=== PATIENT | female | born 1960 ===

== ENCOUNTER → 2019-11-13 15:44 | Outpatient (CLI) | payer MEDICARE, SELFPAY ==
--- NOTE | 2019-11-13 | DI.US.S_ITS ---
PROCEDURE: US PELVIC COMPLETE INDICATIONS: PELVIC PAIN, ROUTINE SCREENING MAMMOGRAM TECHNIQUE: Real-time scanning was performed of the pelvic organs, with image documentation. Additional endovaginal scanning was necessary due to incomplete visualization of the adnexal and endometrial structures by transabdominal scanning. COMPARISON: [facility], US, PELVIC COMPLETE, 05/16/2016, 14:01. FINDINGS: Transabdominal scanning: Limited scanning through the kidneys shows no hydronephrosis. No pathologic free abdominal or pelvic fluid. Endovaginal scanning: Uterus: Uterus is normal in size at 6.9 x 2.9 x 3.6 cm. The endometrium measures 4.0 mm in combined thickness. Subserosal fibroid unchanged measuring 1.8 x 1.4 x 1.8 cm. Previously visualized 2 additional intramural fibroids not identified. Ovaries: Normal ovary measuring 2.7 x 1.4 x 1.6 cm on the right and 2.2 x 1.1 x 1.5 cm in length. IMPRESSION: 1. Normal endometrial complex. 2. Stable appearance of 18 mm subserosal fibroid. Dictated by: Josias Martell [facility] Interpreted: Talon Damian MD on 11/14/2019 at 10:02 Approved by: Talon Damian M.D. on 11/14/2019 at 12:55
== END ==
PROVIDERS: PCP Family Medicine; Visit Provider Obstetrics & Gynecology
DX: R10.2 Pelvic and perineal pain (principal); D25.2 Subserosal leiomyoma of uterus
CPT/HCPCS: 76830; 76856

== ENCOUNTER 2021-02-21 17:34 | Emergency (ER) | payer MEDICARE, SELFPAY ==
[2021-02-21] VITALS (9 sets, daily range): BP systolic 112–136; BP diastolic 57–93; PULSE 59–108; RESP 14–16; TEMP 36.8; O2SAT 97–100; BMI 19.2
[2021-02-21 17:59] LABS: Bacteria Urine None Seen; RBC Urine None Seen (0-5/HPF)
[2021-02-21 18:00] LABS: Appearance Urine UA CLEAR; Bilirubin Urine UA NEGATIVE (NEGATIVE); Color Urine UA YELLOW; Glucose Urine UA NEGATIVE (Negative); Ketones Urine UA NEGATIVE (NEGATIVE); Leukocyte Esterase Urine UA NEGATIVE (NEGATIVE); Nitrite Urine UA NEGATIVE (Negative); Occult Blood Urine UA NEGATIVE (Negative); Protein Urine UA NEGATIVE (Negative); Urobilinogen Urine UA 0.2 E.U./dL (0.2)
[2021-02-21 18:02] LABS: pH Urine UA 6.5 (4.5-8.0)
[2021-02-21 18:09] LABS: Culture Indicated Urine Cult Not Indicated; Squamous Epithelial Cell Urine 0-1 /HPF (0-5/HPF); WBC Urine 0-1/HPF (0-5/HPF)
--- NOTE | 2021-02-21 19:48 | ED.FEMALEGU ---
HPI - Female Genitourinary General Chief complaint: Urogenital-Female Stated complaint: UTI, Poss in Kidney. Sent By Time Seen by Provider: 02/21/21 17:50 Source: patient Mode of arrival: Ambulatory Limitations: no limitations History of Present Illness HPI Narrative: 60F nonsmoker with dystonia and migraines presents with urinary frequency, urgency, burning and radiation to right flank. She's had no fever or chills. She denies N/V/D. She denies vaginal bleeding or discharge. She initally developed symptoms last week and was seen at a clinic in the [facility]. She had positive urine and was given Rocephin IM and an Rx for Bactrim. Once the culture came back, noting Pseudomonas she was changed to Levaquin for 5 days, which ended on Sunday. She presents today with persistent symptoms. Onset (ago): day(s) Female Urogenital Radiation: R Flank Severity: mild Quality: Aching Duration: constant Exacerbating factors: movement Patient : No Related Data Home Medications Medication Instructions Recorded Confirmed amoxicillin-pot clavulanate BID #0 04/20/17 [Augmentin] topiramate 25 mg PO BID #0 04/20/17 valacyclovir 1,000 mg PO QDAY #0 04/20/17 Previous Rx's Medication Instructions Recorded ketorolac 10 mg PO Q6H PRN #14 tab 02/21/21 levofloxacin 500 mg PO DAILY 9 Days #9 tab 02/21/21 ondansetron 4 mg PO TID-QID PRN #10 tab 02/21/21 Allergies Allergy/AdvReac Type Severity Reaction Status Date / Time haloperidol [HALOPERIDOL] Allergy Unknown POSSIBLE Unverified 03/06/18 12:27 CAUSE OF DYSTONIA metoclopramide Allergy Unknown POSSIBLE Unverified 03/06/18 12:27 [METOCLOPRAMIDE] CAUSE OF DYSTONIA Opioids - Morphine Analogues AdvReac Mild Nausea Unverified 02/21/21 17:52 [OPIOIDS - MORPHINE ANALOGUES] Review of Systems Constitutional Constitutional: Denies chills, Denies fatigue, Denies fever(s), Denies frequent falls, Denies lethargy and Denies weakness Eyes Eyes: Denies change in vision, Denies eye discharge, Denies irritation and Denies loss of vision ENT Ears, Nose, Mouth, and Throat: Denies change in voice, Denies dizziness, Denies neck pain, Denies sore throat and Denies throat swelling Cardiovascular Cardiovascular: Denies chest pain, Denies irregular heart rhythm, Denies lightheadedness, Denies palpitations, Denies dyspnea, Denies dyspnea on exertion and Denies orthopnea Respiratory Respiratory: Denies cough, Denies dyspnea, Denies dyspnea on exertion and Denies wheezing Gastrointestinal Gastrointestinal: Denies abdominal pain, Denies change in bowel habits, Denies diarrhea, Denies nausea and Denies vomiting Musculoskeletal Musculoskeletal: Denies neck pain and Denies numbness Integumentary/Breasts Skin/Breast: Denies pruritus, Denies erythema, Denies rash and Denies wounds Neurologic Neurologic: Denies behavioral changes, Denies confusion, Denies dizziness, Denies frequent falls, Denies loss of vision, Denies numbness and Denies weakness Psychiatric Psychiatric: Denies anxiety, Denies behavioral changes, Denies confusion, Denies depression, Denies homicidal ideation and Denies suicidal ideation Endocrine Endocrine: Denies fatigue, Denies flushing and Denies palpitations Hematologic/Lymphatic Hematologic/Lymphatic: Denies easy bruising Allergic/Immunologic Allergic/Immunologic: Denies urticaria, Denies throat swelling and Denies wheezing Patient History Substance Use Type: does not use Exam Narrative Exam Narrative: GENERAL: [60] year old patient appears stated age. Well-nourished, well-developed patient, in mild distress. HEAD: Atraumatic. Normocephalic. EYES: Pupils equal round and reactive. Extraocular motions intact. No scleral icterus. No injection or drainage. ENT: Nose without bleeding, purulent drainage. Throat without erythema, tonsillar hypertrophy or exudate. Airway patent. NECK: Trachea midline. Non tender CARDIOVASCULAR: Regular rate and rhythm without murmurs, gallops, or rubs. RESPIRATORY: Clear to auscultation. Breath sounds equal bilaterally. No wheezes, rales, or rhonchi. GASTROINTESTINAL: Abdomen soft, mild suprapubic tenderness, nondistended. Bowel sounds present in all 4 quadrants EXTREMITIES: No edema or joint tenderness. BACK: Nontender without deformity or crepitance. No flank tenderness. NEURO: AOx3. SKIN: No rash or erythema of visible areas Initial Vital Signs Initial Vital Signs: Vital Signs Temperature 98.3 F 02/21/21 17:44 Pulse Rate 108 H 02/21/21 17:44 Respiratory Rate 16 02/21/21 17:44 Blood Pressure 136/75 02/21/21 17:44 Pulse Oximetry 99 02/21/21 17:44 Course Orders Ordered: ED Orders 02/21/21 17:57 Urinalysis and Microscopic Stat 02/21/21 20:04 Basic Metabolic Panel Stat Complete Blood Count AUTO DIFF Stat 02/21/21 20:23 CT kidney ureter bladder (KUB) Stat 02/21/21 20:26 Blood Culture Stat 02/21/21 22:32 Urine Culture Stat Discontinued Medications Sodium Chloride (Normal Saline 0.9%) 1,000 mls @ 1,000 mls/hr IV BOLUS ONE Stop: 02/21/21 20:53 Last Infusion: 02/21/21 21:25 Dose: 0 mls/hr Documented by: JOSE CRUZ Admin: 02/21/21 20:20 Dose: 1,000 mls/hr Documented by: TALAT Ketorolac Tromethamine (Ketorolac 60 Mg/2 Ml Vial) 15 mg IV NOW ONE Stop: 02/21/21 19:55 Last Admin: 02/21/21 20:19 Dose: 15 mg Documented by: TALAT Levofloxacin (Levofloxacin 250 Mg Tablet) 500 mg PO NOW ONE Stop: 02/21/21 22:28 Last Admin: 02/21/21 22:35 Dose: 500 mg Documented by: JOSE CRUZ Vital Signs Vital signs: Vital Signs - 8 hr 02/21/21 19:39 02/21/21 20:00 02/21/21 20:30 Pulse Rate 64 69 61 Respiratory Rate Blood Pressure 134/71 117/59 L Pulse Oximetry 100 99 100 02/21/21 21:00 02/21/21 21:30 02/21/21 21:31 Pulse Rate 59 L 67 67 Respiratory Rate Blood Pressure 115/57 L 120/93 H Pulse Oximetry 100 100 100 02/21/21 22:00 02/21/21 22:44 Pulse Rate 77 82 Respiratory Rate 14 Blood Pressure 112/68 126/74 Pulse Oximetry 100 97 MDM - Female Genitourinary Lab Data Result diagrams: 02/21/21 20:04 02/21/21 20:04 Labs: Lab Results 02/21/21 02/21/21 02/21/21 Range/Units 17:57 20:04 20:04 WBC 6.5 (4.5-11.0) X10^3/uL RBC 3.95 L (4.0-5.2) X10^6/uL Hgb 12.8 (12.0-16.0) g/dL Hct 38.5 (36-46) % MCV 97.4 (80-100) fL MCH 32.4 (26-34) PG MCHC 33.2 (30-36) % RDW 14.5 (11.6-14.8) % Plt Count 243 (150-400) X10^3/uL Neut % (Auto) 48.7 L (50-75) % Lymph % (Auto) 42.8 H (25-40) % [place] % (Auto) 6.9 (3-14) % Eos % (Auto) 1.0 L (2-4) % Baso % (Auto) 0.6 (0-2) % Neut # (Auto) 3200 (6306-7848) /uL Lymph # (Auto) 2800 (4992-4434) /uL [place] # (Auto) 500 (0-900) /uL Eos # (Auto) 100 (0-450) /uL Baso # (Auto) 0 (0-100) /uL Sodium 140 (137-145) mmol/L Potassium 4.0 (3.4-5.1) mmol/L Chloride 112 H (98-107) mmol/L Carbon Dioxide 21 L (22-32) mmol/L BUN 18 H (7-17) mg/dL Creatinine 0.61 (0.52-1.04) mg/dL Estimated GFR > 60.0 (>60) mL/min BUN/Creatinine Ratio 29.5 H (6-22) Glucose 86 (80-110) mg/dL Calcium 9.2 (8.4-10.2) mg/dL Urine Color Yellow Urine Appearance Clear Urine pH 6.5 (4.5-8.0) Ur Specific [place] 1.010 (1.000-1.035) Urine Protein Negative (Negative) Urine Glucose (UA) Negative (Negative) g/dL Urine Ketones Negative (NEGATIVE) Urine Occult Blood Negative (Negative) Urine Nitrate Negative (Negative) Urine Bilirubin Negative (NEGATIVE) Urine Urobilinogen 0.2 (0.2) E.U./dL Ur Leukocyte Esterase Negative (NEGATIVE) Urine RBC None seen (0-5/HPF) Urine WBC 0-1/hpf (0-5/HPF) Ur Squamous Epith Cells 0-1 /hpf (0-5/HPF) Urine Bacteria None seen (None) Ur Culture Indicated? Cult not indicated Imaging Data CT scan - abdomen/pelvis: Radiologist's Impression: No stone or obstructive process MDM Narrative Medical decision making narrative: Patient with dysuria, frequency, urgency and some flank pain with recent diagnosis of UTI and multiple antibiotics. Urine culture notes Pseudomonas with sensitivity to the quinolones and patient had been on a 5 day course of Levaquin. She has ongoing symptoms and denies systemic findings such as fever, chills nor nausea or vomiting. She denies vaginal bleeding or discharge. She has no signs of sepsis, labs are very reassuring. Our urine is clean and a 2nd sample was obtained towards the end of her visit which I sent for a culture despite a repeat negative POC. We had a lengthy discussion about a process moving forward. My suspicion is that her urine appears clear today but she has ongoing symptoms due to a partially treated urine infection which will just need a longer duration. CT was ordered to rule out kidney stone or anatomic abnormality which had no significant findings. 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 She and have been given return precautions, agree with diagnosis and plan and a bad questions answered to their apparent satisfaction Discharge Plan Departure Patient Disposition: Home Clinical Impression: Pyelonephritis Instructions: DI for Kidney Infection Activity Restrictions/Additional Instructions: *You have been diagnosed with [acute right-sided pyelonephritis. Your blood work and CT scan are very reassuring.] *What to do: *Take medications as directed: Prescription sent to [facility] *Follow up with your primary care provider in 2-3 days, call for an appointment. Let them know you were seen in the Emergency Department and that we ask that you be seen in follow up *Return to ER if you should have any new, worsening or concerning symptoms, such as [fever greater than 101 F, shaking chills, worsening pain, significant vomiting or other bothersome symptoms] Prescriptions: New levofloxacin 500 mg tablet 500 mg PO DAILY 9 Days Qty: 9 RF: 0 ondansetron 4 mg tablet,disintegrating 4 mg PO TID-QID PRN (Reason: nausea and vomiting) Qty: 10 RF: 0 ketorolac 10 mg tablet 10 mg PO Q6H PRN (Reason: pain) Qty: 14 RF: 0 No Action topiramate 25 MG capsule,sprinkle,ER 24hr 25 mg PO BID Qty: 0 RF: 0 valacyclovir 500 MG tablet 1,000 mg PO QDAY Qty: 0 RF: 0 amoxicillin-pot clavulanate [Augmentin] 875 MG/125 MG tablet BID Qty: 0 RF: 0 Referrals: Gabriel June MD [Primary Care Provider] -
[2021-02-21] MEDS: KETOROLAC 60 MG/2 ML VIAL 15 MG IV (20:19)
[2021-02-21] MEDS: SODIUM CHLORIDE 0.9% 1,000 ML 1000 ML IV (20:20)
[2021-02-21 20:23] LABS: BUN Creatinine Ratio 29.5 (6-22); Blood Urea Nitrogen 18 mg/dL (7-17); Calcium 9.2 mg/dL (8.4-10.2); Carbon Dioxide 21 mmol/L (22-32); Chloride 112 mmol/L (98-107); Estimated Glomerular Filt Rate > 60.0 mL/min (>60); Glucose 86 mg/dL (80-110); HEMOLYSIS 30 (0-50); Sodium 140 mmol/L (137-145)
--- NOTE | 2021-02-21 20:23 | DI.CT.S_ITS ---
PROCEDURE: CT KIDNEY URETER BLADDER (KUB) INDICATIONS: flank pain, history of stones TECHNIQUE: Noncontrast 5 mm thick sections acquired from the diaphragms to the symphysis. 5 mm thick coronal and sagittal reformats were then performed. For radiation dose reduction, the following was used: automated exposure control, adjustment of mA and/or kV according to patient size. COMPARISON: None. FINDINGS: Image quality: Excellent. Lung bases: Lung bases are clear. Heart size is normal. Trace pericardial effusion. Urinary system: Both kidneys are normal in size. No kidney stones. No hydronephrosis or perinephric fat stranding. Both ureters appear non-dilated throughout their expected courses. Bladder wall thickness is normal; no calcified bladder stones. Other solid organs: Liver is normal in size. Gallbladder is normal . Pancreas is normal in contours. Spleen is normal in size. No adrenal nodules. Peritoneum and bowel: Unenhanced bowel loops demonstrate normal wall thickness and caliber. There is a short segment of mid ascending colon which demonstrates mild wall thickening and very subtle pericolonic inflammation. The appendix is seen the more caudal in the pelvis and appears normal. There is increased quantity of solid stool in the distal colon. No free fluid or air. Nodes and vessels: No retroperitoneal or mesenteric adenopathy by size criteria. Aorta and inferior vena cava are normal in caliber. Mild abdominal aortic atherosclerotic calcification. Abdominal wall: No ventral hernias. Pelvis: No free pelvic fluid. No inguinal hernias or adenopathy. Ring-like device in the mid vaginal canal. Bones: No suspicious bony lesions. No vertebral body compression fractures. IMPRESSION: 1. No evidence of urinary calcification or obstructive uropathy. 2. There are subtle changes of short segment proximal colon inflammation. There may be mild focal infectious colitis. Correlate clinically. 3. Normal appendix. Dictated by: Judy Hartman M.D. on 02/21/2021 at 21:59 Approved by: Judy Hartman M.D. on 02/21/2021 at 22:05
[2021-02-21 20:30] LABS: Add Manual Diff / Slide Review NO; Basophils Absolute Auto 0 /uL (0-100); Basophils Percent Auto 0.6 % (0-2); Eosinophils Absolute Auto 100 /uL (0-450); Hematocrit 38.5 % (36-46); Hemoglobin 12.8 g/dL (12.0-16.0); Lymphocytes Absolute Auto 2800 /uL (1100-4500); Lymphocytes Percent Auto 42.8 % (25-40); Mean Corpuscular HGB Conc 33.2 % (30-36); Mean Corpuscular Hemoglobin 32.4 PG (26-34); Mean Corpuscular Volume 97.4 fL (80-100); Monocytes Absolute Auto 500 /uL (0-900); Monocytes Percent Auto 6.9 % (3-14); Neutrophils Absolute Auto 3200 /uL (1500-7000); Neutrophils Percent Auto 48.7 % (50-75); Platelet Count 243 X10^3/uL (150-400); Red Blood Cell Count 3.95 X10^6/uL (4.0-5.2); Red Cell Distribution Width 14.5 % (11.6-14.8); White Blood Cell Count 6.5 X10^3/uL (4.5-11.0)
[2021-02-21] MEDS: levoFLOXacin 250 MG TABLET 500 MG PO (22:35)
--- NOTE | 2021-02-22 12:13 | PC.NURSE ---
Received call from [facility]. They do not stock toradol. Requesting substitution. Spoke w/ Dr. Chong who reviewed and ordered ibuprofen 600 mg po tid prn pain # 14. pharmacy verbalized new script.
== END 2021-02-21 22:45 | disposition home or self-care (01) ==
PROVIDERS: Emergency Provider Emergency Medicine; PCP Family Medicine
DX: N10 Acute pyelonephritis (principal)
CPT/HCPCS: 36415; 74176; 80048; 81001; 85025; 87040; 87077; 87086; 96361; 96374; 99284; J1885

== ENCOUNTER 2021-12-14 13:45 | Outpatient (RCR) | payer MEDICARE, SELFPAY ==
--- NOTE | 2021-11-23 15:42 | PT.OIE ---
Current Diagnoses Dyspareunia not due to a substance or known physiological condition (11/23/21) Anal spasm (11/23/21) Other female genital prolapse (11/23/21) Visit Care Team Role Provider Type Gabriel June MD Family Provider Physician Primary Care Provider Specialty: Family Practice Address: [address] [place] [address], [id number] Email: CASTILLO Leonardo Attending Provider Non-Staff Referring Provider Specialty: Medical Address: [address] [place] [address], [id number] Email: Physical Therapy Initial Evaluation PT-OP-A Visit Information Start: 11/15/21 08:28 Freq: Status: Active Protocol: Document 11/23/21 11:31 AMB (Rec: 11/23/21 11:32 AMB [id number]) Out-Patient Physical Therapy Visit Information Visit Information Visit Type Initial Evaluation Visit Start Time 11:30 Visit Stop Time 12:15 Total Visit Minutes 45 Visit Number 1 PT-OP-B Current Condition Start: 11/15/21 08:28 Freq: Status: Active Protocol: Document 11/23/21 11:33 AMB (Rec: 11/23/21 11:55 AMB [id number]) Current Condition History of Current Condition Onset Date Over a year Current Complaints Painful intercourse History of Current Condition Pelvic pain, with vaginal atrophy- started using estrogen cream and that has been helfpul, but has been to scared to try intercourse again, especially after a year of UTIs. Bleeding and tearing with any penetration for the past year. Retired sterilization technician. Went through menopause a few years ago and it was ok. Muscles go into spasm, thinks worse on the right side. 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 6 children all vaginal deliveries. First home with a tear, did have a rectocele repair after the last kid. No mesh. is fairly new, 4 years . States she has worked up to the largest dilator and still would need something larger to be similar to her . Prior Treatments and Tests dilators, estrogen cream Treatment Goals Patient/Caregiver Goals Painfree intercourse Prior Functional Status Baseline Function- ADL's Independent Baseline Function- Mobility Independent Personal Factors Other Personal Factors That May Effect Cervical dystonia, prior/ Therapy/Recovery current history of proctalgia fugax PT-OP-C Subjective Start: 11/15/21 08:28 Freq: Status: Active Protocol: Document 11/23/21 11:30 AMB (Rec: 11/23/21 15:42 AMB [id number]) Patient Questionnaires Pelvic Floor Distress Inventory Questionnaire (PFDI- SF20) Pelvic Floor Score 27 PT-OP-I Pelvic Floor Start: 11/15/21 08:28 Freq: Status: Active Protocol: Document 11/23/21 11:30 AMB (Rec: 11/23/21 15:42 AMB [id number]) Pelvic Floor Assessment Urine Pelvic Floor Surgery rectocele repair Urinary Symptoms Urge Sensation,Prolapse,Pain Nocturia 3 Pelvic Clock Pelvic Clock 12-3 Atrophy,Tenderness,Tightness Pelvic Clock 3-6 Atrophy,Tenderness,Tightness Pelvic Clock 6-9 Atrophy,Tenderness,Tightness Pelvic Clock 9-12 Atrophy,Tenderness,Tightness Pelvic Clock Other Mild tenderness on R and L levator ani and at perineum Comments Pelvic Floor Comments Tightness and tenderness throughout, but pt states overall pain is much improved since starting estrogen cream and working with dilators PT-OP-T Assessment and Plan Start: 11/15/21 08:28 Freq: Status: Active Protocol: Document 11/23/21 11:30 AMB (Rec: 11/23/21 15:42 AMB [id number]) Physical Therapy Assessment Rehab Potential Rehabilitation Potential Excellent Evaluation Complexity Number of Personal Factors/Comorbidities 1-2 Number of Body Systems Impaired 1-2 Clinical Presentation at Evaluation Stable Impairments Impairments Activity Tolerance,Functional Activities,Pain Goals Two Impairment pain Short Term Goal (STG) Aziza will insert her largest dilator without an increase in pain. STG Duration 6 weeks Nursing Home Goal (LTG) Aziza will engage in the intercourse of her choice without an increase in pain. LTG Duration 12 weeks One Impairment pelvic floor tension Short Term Goal (STG) Aziza will be independent with a stretching and dilator HEP. STG Duration 4 weeks Assessment Summary Assessment Aziza attends PT with pelvic floor pain and history of UTI after intercourse. She also has a multiple year history of what sounds like proctalgia fugax. She has been using an estrogen cream and using dilators for the past month with good success so far, but has been hesitant to resume intercourse due to fear of pain/recurrent UTI. She was able to tolerate manual pelvic assessment well without a significant increase in pain, but some tenderness. Encouraged in dilator usage, and will need to progress stretching/relaxation techniques. Physical Therapy Plan Frequency and Duration Frequency of Treatment 1x/Week Duration of Treatment 12 weeks Plan of Care Start Date 11/23/21 Plan of Care End Date 02/15/22 Therapeutic Interventions Therapeutic Interventions Home Exercise Program,Joint Mobilizations,Manual Therapy, Neuromuscular Re-education, Self-Care/Home Management, Therapeutic Activities, Therapeutic Exercises Modalities Biofeedback,Cold Pack/Ice Massage,Electric Stimulation Next Visit Focus/Plan Next Note Type Treatment Note Next Visit Plan Review standing hamstring stretch, happy baby, reyes pose, review use of wand/ dilator
--- NOTE | 2021-11-23 15:43 | PT.OPPOC ---
Physical, Occupational & Speech Therapy At [facility] Current Diagnoses Dyspareunia not due to a substance or known physiological condition (11/23/21) Anal spasm (11/23/21) Other female genital prolapse (11/23/21) Visit Care Team Role Provider Type Gabriel June MD Family Provider Physician Primary Care Provider Specialty: Family Practice Address: [address] [place] [address], [id number] Email: CASTILLO Leonardo Attending Provider Non-Staff Referring Provider Specialty: Medical Address: [address] [place] [address], [id number] Email: Plan Of Care PT-OP-T Assessment and Plan Start: 11/15/21 08:28 Freq: Status: Active Protocol: Document 11/23/21 11:30 AMB (Rec: 11/23/21 15:42 AMB [id number]) Physical Therapy Assessment Rehab Potential Rehabilitation Potential Excellent Evaluation Complexity Number of Personal Factors/Comorbidities 1-2 Number of Body Systems Impaired 1-2 Clinical Presentation at Evaluation Stable Impairments Impairments Activity Tolerance,Functional Activities,Pain Goals Two Impairment pain Short Term Goal (STG) Aziza will insert her largest dilator without an increase in pain. STG Duration 6 weeks Care Home Goal (LTG) Aziza will engage in the intercourse of her choice without an increase in pain. LTG Duration 12 weeks One Impairment pelvic floor tension Short Term Goal (STG) Aziza will be independent with a stretching and dilator HEP. STG Duration 4 weeks Assessment Summary Assessment Aziza attends PT with pelvic floor pain and history of UTI after intercourse. She also has a multiple year history of what sounds like proctalgia fugax. She has been using an estrogen cream and using dilators for the past month with good success so far, but has been hesitant to resume intercourse due to fear of pain/recurrent UTI. She was able to tolerate manual pelvic assessment well without a significant increase in pain, but some tenderness. Encouraged in dilator usage, and will need to progress stretching/relaxation techniques. Physical Therapy Plan Frequency and Duration Frequency of Treatment 1x/Week Duration of Treatment 12 weeks Plan of Care Start Date 11/23/21 Plan of Care End Date 02/15/22 Therapeutic Interventions Therapeutic Interventions Home Exercise Program,Joint Mobilizations,Manual Therapy, Neuromuscular Re-education, Self-Care/Home Management, Therapeutic Activities, Therapeutic Exercises Modalities Biofeedback,Cold Pack/Ice Massage,Electric Stimulation Next Visit Focus/Plan Next Note Type Treatment Note Next Visit Plan Review standing hamstring stretch, happy baby, reyes pose, review use of wand/ dilator Plan of Care Dates Plan of Care Start Date 11/23/21 Plan of Care End Date 02/15/22 Electronically Signed by: Linette Henry, PT 11/23/21 [id number] Please Sign and Return: I have reviewed this Plan of Care and certify that the skilled therapy services above are required to meet the patient?s needs. Physician Signature Date Printed Name and Credentials Clinical Instructor Signature Printed Name and Credentials
--- NOTE | 2021-12-14 16:00 | PT.OTN ---
Current Diagnoses Dyspareunia not due to a substance or known physiological condition (12/14/21) Anal spasm (12/14/21) Other female genital prolapse (12/14/21) Physical Therapy Treatment Note PT-OP-A Visit Information Start: 11/15/21 08:28 Freq: Status: Active Protocol: Document 12/14/21 13:46 AMB (Rec: 12/14/21 14:33 AMB [id number]) Out-Patient Physical Therapy Visit Information Visit Information Visit Type Treatment Note Visit Start Time 13:45 Visit Stop Time 14:30 Total Visit Minutes 45 Visit Number 2 PT-OP-B Current Condition Start: 11/15/21 08:28 Freq: Status: Active Protocol: Document 11/23/21 11:33 AMB (Rec: 11/23/21 11:55 AMB [id number]) Current Condition History of Current Condition Onset Date Over a year Current Complaints Painful intercourse History of Current Condition Pelvic pain, with vaginal atrophy- started using estrogen cream and that has been helfpul, but has been to scared to try intercourse again, especially after a year of UTIs. Bleeding and tearing with any penetration for the past year. 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 Muscles go into spasm, thinks worse on the right side. 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 6 children all vaginal deliveries. First home with a tear, did have a rectocele repair after the last kid. No mesh. is fairly new, 4 years . States she has worked up to the largest dilator and still would need something larger to be similar to her . Prior Treatments and Tests dilators, estrogen cream Treatment Goals Patient/Caregiver Goals Painfree intercourse Prior Functional Status Baseline Function- ADL's Independent Baseline Function- Mobility Independent Personal Factors Other Personal Factors That May Effect Cervical dystonia, prior/ Therapy/Recovery current history of proctalgia fugax PT-OP-C Subjective Start: 11/15/21 08:28 Freq: Status: Active Protocol: Document 12/14/21 13:46 AMB (Rec: 12/14/21 14:33 AMB [id number]) OP-PT Subjective Patient Comments Patient Comments Had intercourse and didn't bleed but it was still painful . PT-OP-I Pelvic Floor Start: 11/15/21 08:28 Freq: Status: Active Protocol: Document 11/23/21 11:30 AMB (Rec: 11/23/21 15:42 AMB [id number]) Pelvic Floor Assessment Urine Pelvic Floor Surgery rectocele repair Urinary Symptoms Urge Sensation,Prolapse,Pain Nocturia 3 Pelvic Clock Pelvic Clock 12-3 Atrophy,Tenderness,Tightness Pelvic Clock 3-6 Atrophy,Tenderness,Tightness Pelvic Clock 6-9 Atrophy,Tenderness,Tightness Pelvic Clock 9-12 Atrophy,Tenderness,Tightness Pelvic Clock Other Mild tenderness on R and L levator ani and at perineum Comments Pelvic Floor Comments Tightness and tenderness throughout, but pt states overall pain is much improved since starting estrogen cream and working with dilators PT-OP-Q Treatments Start: 11/15/21 08:28 Freq: Status: Active Protocol: Document 12/14/21 13:45 AMB (Rec: 12/23/21 09:54 AMB [id number]) Manual Therapy Treatment Soft Tissue Mobilization 1 Body Location L>R levator ani Mobilization Type Myofascial Release Intensity/Depth Moderate Body Position Hooklying Comments discussed proctalgia fugax, heat, could discuss meds with PT-OP-T Assessment and Plan Start: 11/15/21 08:28 Freq: Status: Active Protocol: Document 12/14/21 13:46 AMB (Rec: 12/14/21 14:33 AMB [id number]) Physical Therapy Assessment Goals Two Impairment pain Short Term Goal (STG) Aizza will insert her largest dilator without an increase in pain. STG Duration 6 weeks Care Home Goal (LTG) Aziza will engage in the intercourse of her choice without an increase in pain. LTG Duration 12 weeks One Impairment pelvic floor tension Short Term Goal (STG) Aziza will be independent with a stretching and dilator HEP. STG Duration 4 weeks Assessment Summary Assessment Aziza had palpable tightness L>R levator ani, but did feel good release with manual release. Discussed continued dilator usage. Physical Therapy Plan Next Visit Focus/Plan Next Note Type Treatment Note Next Visit Plan Review standing hamstring stretch, happy baby, reyes pose, review use of wand/ dilator
--- NOTE | 2022-02-01 09:37 | PT.OPDS ---
Current Diagnoses Dyspareunia not due to a substance or known physiological condition (12/14/21) Anal spasm (12/14/21) Other female genital prolapse (12/14/21) Visit Care Team Role Provider Type Gabriel June MD Family Provider Physician Primary Care Provider Specialty: Family Practice Address: [address] [place] [address], [phone] Fax: Email: CASTILLO Leonardo Attending Provider Non-Staff Referring Provider Specialty: Medical Address: [address] [place] [address], [id number] Email: Visit Number Visit Number 2 Discharge Summary PT-OP-B Current Condition Start: 11/15/21 08:28 Freq: Status: Active Protocol: Document 11/23/21 11:33 AMB (Rec: 11/23/21 11:55 AMB [id number]) Current Condition History of Current Condition Onset Date Over a year Current Complaints Painful intercourse History of Current Condition Pelvic pain, with vaginal atrophy- started using estrogen cream and that has been helfpul, but has been to scared to try intercourse again, especially after a year of UTIs. Bleeding and tearing with any penetration for the past year. 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 Muscles go into spasm, thinks worse on the right side. 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 6 children all vaginal deliveries. First home with a tear, did have a rectocele repair after the last kid. No mesh. is fairly new, 4 years . States she has worked up to the largest dilator and still would need something larger to be similar to her . Prior Treatments and Tests dilators, estrogen cream Treatment Goals Patient/Caregiver Goals Painfree intercourse Prior Functional Status Baseline Function- ADL's Independent Baseline Function- Mobility Independent Personal Factors Other Personal Factors That May Effect Cervical dystonia, prior/ Therapy/Recovery current history of proctalgia fugax PT-OP-C Subjective Start: 11/15/21 08:28 Freq: Status: Active Protocol: Document 12/14/21 13:46 AMB (Rec: 12/14/21 14:33 AMB [id number]) OP-PT Subjective Patient Comments Patient Comments Had intercourse and didn't bleed but it was still painful . PT-OP-I Pelvic Floor Start: 12/21/21 08:28 Freq: Status: Active Protocol: Document 11/23/21 11:30 AMB (Rec: 11/23/21 15:42 AMB [id number]) Pelvic Floor Assessment Urine Pelvic Floor Surgery rectocele repair Urinary Symptoms Urge Sensation,Prolapse,Pain Nocturia 3 Pelvic Clock Pelvic Clock 12-3 Atrophy,Tenderness,Tightness Pelvic Clock 3-6 Atrophy,Tenderness,Tightness Pelvic Clock 6-9 Atrophy,Tenderness,Tightness Pelvic Clock 9-12 Atrophy,Tenderness,Tightness Pelvic Clock Other Mild tenderness on R and L levator ani and at perineum Comments Pelvic Floor Comments Tightness and tenderness throughout, but pt states overall pain is much improved since starting estrogen cream and working with dilators PT-OP-T Assessment and Plan Start: 11/15/21 08:28 Freq: Status: Active Protocol: Document 02/01/22 09:36 AMB (Rec: 02/01/22 09:37 AMB [id number]) Physical Therapy Assessment Assessment Summary Assessment Aziza has not been seen in over a month. She was seen for two visits and canceled her remaining visits. At her last visit Aziza had palpable tightness L>R levator ani, but did feel good release with manual release. Discussed continued dilator usage. Physical Therapy Plan Discharge Physical Therapy Discharge Reasons No Longer Attending PT
== END 2022-02-02 09:03 ==
LOC: PHYS 13:45
PROVIDERS: Family Provider Family Medicine; PCP Family Medicine; Referring Provider Nurse Practitioner Family; Visit Provider Nurse Practitioner Family
DX: N81.89 Other female genital prolapse (principal); F52.6 Dyspareunia not due to a substance or known physiological condition; K59.4 Anal spasm
CPT/HCPCS: 97140; 97161

== ENCOUNTER 2023-11-27 14:02 | Emergency (ER) | payer MEDICARE, SELFPAY ==
[2023-11-27 14:04] VITALS: BP 143/80; PULSE 83; RESP 18; TEMP 36.8; O2SAT 100; BMI 21.8
[2023-11-27] MEDS: diphenhydrAMINE 50 MG/ML VIAL 25 MG IV (14:36)
[2023-11-27] MEDS: KETOROLAC 30 MG/ML VIAL 15 MG IV (14:36)
[2023-11-27] MEDS: ACETAMINOPHEN 325 MG TABLET 975 MG PO (14:37)
--- NOTE | 2023-11-27 14:37 | ED.HA ---
HPI - Headache <Reyes Schmitz PA-C - Last Filed: 11/27/23 15:45> General Chief Complaint: Headache Stated Complaint: Migraine Time Seen by Provider: 11/27/23 14:14 Mode of arrival: Ambulatory History of Present Illness HPI Narrative: 62-year-old female with past medical history migraines, dystonia presents to the ED with 3 days of intractable migraine. Patient states that the nature of the headache is the same as her routine migraines. No vision changes. Patient endorses nausea, took ondansetron this morning for it with good relief. No chest pain, shortness of breath, vomiting. Patient is followed by you would up for migraine management. She is on Ubrelvy. She took Ubrelvy for the last 3 days with no relief. Patient also states that she has had adverse reactions to Reglan, suspects that it might have contributed to her dystonia. Related Data Home Medications Medication Instructions Recorded Confirmed amoxicillin 875 mg-potassium BID ##0 04/20/17 clavulanate 125 mg tablet (Augmentin) topiramate 25 mg capsule 25 mg PO BID ##0 04/20/17 sprinkle,extended release 24 hr valacyclovir 500 mg tablet 1,000 mg PO QDAY ##0 04/20/17 Previous Rx's Medication Instructions Recorded ketorolac 10 mg tablet 10 mg PO Q6H PRN pain #14 tabs 02/21/21 ondansetron 4 mg disintegrating 4 mg PO TID-QID PRN nausea and 02/21/21 tablet vomiting #10 tabs Allergies Allergy/AdvReac Type Severity Reaction Status Date / Time haloperidol [HALOPERIDOL] Allergy Unknown POSSIBLE Verified 11/27/23 14:36 CAUSE OF DYSTONIA metoclopramide Allergy Unknown POSSIBLE Verified 11/27/23 14:36 [METOCLOPRAMIDE] CAUSE OF DYSTONIA sumatriptan Allergy Verified 11/27/23 14:36 Opioids - Morphine Analogues AdvReac Mild Nausea Verified 11/27/23 14:36 [OPIOIDS - MORPHINE ANALOGUES] Review of Systems <Reyes Schmitz PA-C - Last Filed: 11/27/23 15:45> Constitutional Constitutional: Denies chills, Denies fatigue, Denies fever(s), Denies frequent falls, Reports headache(s), Denies lethargy and Denies weakness Eyes Eyes: Denies change in vision, Denies eye discharge, Denies irritation and Denies loss of vision ENT Ears, Nose, Mouth, and Throat: Denies change in voice, Denies dizziness, Reports headache(s), Denies neck pain, Denies sore throat and Denies throat swelling Cardiovascular Cardiovascular: Denies chest pain, Denies irregular heart rhythm, Denies lightheadedness, Denies palpitations, Denies dyspnea, Denies dyspnea on exertion and Denies orthopnea Respiratory Respiratory: Denies cough, Denies dyspnea, Denies dyspnea on exertion and Denies wheezing Gastrointestinal Gastrointestinal: Denies abdominal pain, Denies change in bowel habits, Denies diarrhea, Reports nausea and Denies vomiting Musculoskeletal Musculoskeletal: Denies neck pain and Denies numbness Integumentary/Breasts Skin/Breast: Denies pruritus, Denies erythema, Denies rash and Denies wounds Neurologic Neurologic: Denies behavioral changes, Denies confusion, Denies dizziness, Denies frequent falls, Reports headache(s), Denies loss of vision, Denies numbness and Denies weakness Psychiatric Psychiatric: Denies anxiety, Denies behavioral changes, Denies confusion, Denies depression, Denies homicidal ideation and Denies suicidal ideation Endocrine Endocrine: Denies fatigue, Denies flushing and Denies palpitations Hematologic/Lymphatic Hematologic/Lymphatic: Denies easy bruising Allergic/Immunologic Allergic/Immunologic: Denies urticaria, Denies throat swelling and Denies wheezing Patient History <Reyes Schmitz PA-C - Last Filed: 11/27/23 15:45> Social History Smoking Status: Never smoker Smoking Status: Never smoker Substance Use Type: does not use Exam <Reyes Schmitz PA-C - Last Filed: 11/27/23 15:45> Narrative Exam Narrative: Const General:?cooperative, healthy appearing and comfortable [facility] Head:?normal to inspection Ears:?hearing grossly normal bilaterally Nose:?external nose normal Face and sinus:?normal facial exam and sinuses nontender Mouth:?oral mucosae normal Throat:?posterior oropharynx normal Eyes General:?appearance normal, both eyes and all related structures Neck Neck:?normal visual inspection and no lymphadenopathy noted Resp Effort & Inspection:?normal respiratory effort Auscultation:?clear to auscultation bilaterally Cardio Rate:?regular rate Rhythm:?regular rhythm Neuro General:?patient alert, patient awake and patient oriented x3; PERRLA; CN 1 through 12 intact bilaterally; gait is normal Initial Vital Signs Initial Vital Signs: Vital Signs Temperature 98.3 F 11/27/23 14:04 Pulse Rate 83 11/27/23 14:04 Respiratory Rate 18 11/27/23 14:04 Blood Pressure 143/80 H 11/27/23 14:04 Pulse Oximetry 100 11/27/23 14:04 Oxygen Delivery Method Room Air 11/27/23 14:04 <Roseanna Chong DO - Last Filed: 12/04/23 03:18> Initial Vital Signs Initial Vital Signs: Vital Signs Temperature 98.3 F 11/27/23 14:04 Pulse Rate 83 11/27/23 14:04 Respiratory Rate 18 11/27/23 14:04 Blood Pressure 143/80 H 11/27/23 14:04 Pulse Oximetry 100 11/27/23 14:04 Oxygen Delivery Method Room Air 11/27/23 14:04 Course <Reyes Schmitz PA-C - Last Filed: 11/27/23 15:45> Orders Ordered: Discontinued Medications Acetaminophen (Acetaminophen 325 Mg Tablet) 975 mg PO NOW ONE Stop: 11/27/23 14:24 Last Admin: 11/27/23 14:37 Dose: 975 mg Documented By: KOFI Dexamethasone (Dexamethasone 10 Mg/Ml Vial) 10 mg IV NOW ONE Stop: 11/27/23 15:40 Last Admin: 11/27/23 15:45 Dose: 10 mg Documented By: KOFI Diphenhydramine HCl (Diphenhydramine 50 Mg/Ml Vial) 25 mg IV NOW ONE Stop: 11/27/23 14:24 Last Admin: 11/27/23 14:36 Dose: 25 mg Documented By: KOFI Sodium Chloride (Normal Saline 0.9%) 1,000 mls @ 1,000 mls/hr IV BOLUS ONE Stop: 11/27/23 15:22 Last Infusion: 11/27/23 15:46 Dose: Infused Documented By: Admin: 11/27/23 14:38 Dose: 1,000 mls/hr Documented By: KOFI Ketorolac Tromethamine (Ketorolac 30 Mg/Ml Vial) 15 mg IV NOW ONE Stop: 11/27/23 14:24 Last Admin: 11/27/23 14:36 Dose: 15 mg Documented By: KOFI Vital Signs Vital signs: Vital Signs - 8 hr 11/27/23 14:04 Temperature 98.3 F Pulse Rate 83 Respiratory Rate 18 Blood Pressure 143/80 H Pulse Oximetry 100 Oxygen Delivery Method Room Air <Roseanna Chong DO - Last Filed: 12/04/23 03:18> Orders Ordered: Discontinued Medications Acetaminophen (Acetaminophen 325 Mg Tablet) 975 mg PO NOW ONE Stop: 11/27/23 14:24 Last Admin: 11/27/23 14:37 Dose: 975 mg Documented By: RL Dexamethasone (Dexamethasone 10 Mg/Ml Vial) 10 mg IV NOW ONE Stop: 11/27/23 15:40 Last Admin: 11/27/23 15:45 Dose: 10 mg Documented By: RL Diphenhydramine HCl (Diphenhydramine 50 Mg/Ml Vial) 25 mg IV NOW ONE Stop: 11/27/23 14:24 Last Admin: 11/27/23 14:36 Dose: 25 mg Documented By: KOFI Sodium Chloride (Normal Saline 0.9%) 1,000 mls @ 1,000 mls/hr IV BOLUS ONE Stop: 11/27/23 15:22 Last Infusion: 11/27/23 15:46 Dose: Infused Documented By: Admin: 11/27/23 14:38 Dose: 1,000 mls/hr Documented By: KOFI Ketorolac Tromethamine (Ketorolac 30 Mg/Ml Vial) 15 mg IV NOW ONE Stop: 11/27/23 14:24 Last Admin: 11/27/23 14:36 Dose: 15 mg Documented By: KOFI Vital Signs Vital signs: Vital Signs - 8 hr 11/27/23 14:04 Temperature 98.3 F Pulse Rate 83 Respiratory Rate 18 Blood Pressure 143/80 H Pulse Oximetry 100 Oxygen Delivery Method Room Air MDM - Headache <Reyes Schmitz PA-C - Last Filed: 11/27/23 15:45> MDM Narrative Medical decision making narrative: 62-year-old female with past medical history migraines, dystonia presents to the ED with 3 days of intractable migraine. History and physical exam most consistent with primary headache such as migraine. No change in nature of headache, no indication for imaging at this time. Will give Tylenol, ketorolac, IV fluids, Benadryl. Will consider dexamethasone prevent rebound headaches. Will reassess. Patient's symptoms significantly improved with the medications. Will give dexamethasone to prevent rebound headaches. Recommend follow-up with her doctor as soon as possible. Recommend continuing migraine medications as prescribed. ED return precautions discussed with patient. Patient verbalized understanding. Medical records reviewed: Yes Discharge Plan Departure Patient Disposition: Home Clinical Impression: Headache Instructions: DI for Headache Activity Restrictions/Additional Instructions: You were evaluated in the ED today for a headache. You were given Tylenol, Toradol, Benadryl, dexamethasone, IV fluids with good relief. Please continue to take her migraine medications as prescribed by your doctor. Please follow-up with your doctor as soon as possible. Return to the ED if you have worsening symptoms, persistent headache, nausea, vomiting. Prescriptions: No Action topiramate 25 MG capsule,sprinkle,ER 24hr 25 mg PO BID Qty: 0 valacyclovir 500 MG tablet 1,000 mg PO QDAY Qty: 0 amoxicillin-pot clavulanate [Augmentin] 875 MG/125 MG tablet BID Qty: 0 ondansetron 4 mg tablet,disintegrating 4 mg PO TID-QID PRN (Reason: nausea and vomiting) Qty: 10 0RF ketorolac 10 mg tablet 10 mg PO Q6H PRN (Reason: pain) Qty: 14 0RF Referrals: Gabriel June MD [Primary Care Provider] - Stand Alone Forms: Patient Portal/API ED Sign-out <Roseanna Chong DO - Last Filed: 12/04/23 03:18> Cosign ED Attending Deanne Attestation: I was available for consultation.
[2023-11-27] MEDS: SODIUM CHLORIDE 0.9% 1,000 ML 1000 ML IV (14:38)
[2023-11-27] MEDS: DEXAMETHASONE 10 MG/ML VIAL IV (15:45)
[2023-11-27 15:56] VITALS: BP 112/60; PULSE 60; RESP 18; O2SAT 97
== END 2023-11-27 16:07 | disposition home or self-care (01) ==
PROVIDERS: Emergency Provider Student in an Organized Health Care Education/Training Program; Family Provider Family Medicine; PCP Family Medicine
DX: R51.9 Headache, unspecified (principal)
CPT/HCPCS: 96374; 96375; 99283; 99284; J1100; J1200; J1885

== ENCOUNTER → 2023-12-10 13:41 | Outpatient (CLI) | payer MEDICARE, SELFPAY ==
--- NOTE | 2023-12-10 13:53 | DI.MRI.S_ITS ---
PROCEDURE: MR ANKLE RT WO CON INDICATIONS: RIGHT ANKLE INSTABILITY TECHNIQUE: Noncontrast sagittal T1 spin echo and T2 fast spin echo with fat saturation, axial proton density fast spin echo and T2 fast spin echo with fat saturation, coronal T1 spin echo and T2 fast spin echo with fat saturation through the ankle/hindfoot. COMPARISON: None. FINDINGS: Image quality: Excellent. Bones and joints: [id number] midfoot and hindfoot joint osteoarthritic changes are seen with joint space narrowing, subchondral sclerosis and small marginal osteophyte formation. There is no fracture or dislocation. No hindfoot coalitions. No osteochondral injuries of the talar dome. No pathologic joint effusions. Well-defined plantar calcaneal enthesophyte is seen. Medial structures: The posterior tibialis tendon is thickened with mild adjacent edema at the level of distal talus and talonavicular joint. The flexor digitorum longus, and flexor hallucis longus tendons are intact. The posterior tibial neurovascular bundle appears normal within the tarsal tunnel, without extrinsic mass effect. The deltoid ligament and spring ligament are thickened. Lateral structures: The anterior talofibular, calcaneofibular, and posterior talofibular ligaments appear thickened. More superiorly, the anterior and posterior tibiofibular ligaments appear intact, as is the intermalleolar ligament. The tibiofibular syndesmosis is normal in width at 2 mm or less. The peroneus longus and brevis tendons are mildly thickened at the level of mid to distal calcaneus and calcaneocuboid joint. The sinus tarsi demonstrates normal fatty signal, without edema, fibrosis, or cyst formation. Visualized sinus tarsi components (cervical ligament, interosseous talocalcaneal ligament, roots of the inferior extensor retinaculum) appear normal. The calcaneonavicular and calcaneocuboid components of the bifurcate ligament appear intact. The dorsal calcaneocuboid ligament appears intact. Anterior structures: The tibialis anterior, extensor hallucis longus, and extensor digitorum longus tendons appear intact. The dorsal talonavicular ligament appears intact. Posterior and plantar structures: Thickened distal Achilles tendon extending to its posterior calcaneal insertion is seen with adjacent edema suggestive of mild tendinosis.. Medial and lateral bands of the plantar fascia are of normal thickness. No abductor digiti quinti muscle atrophy to suggest Arnold neuropathy. IMPRESSION: 1. Mdpj-[id number]-[id number] midfoot and hindfoot joint osteoarthritis. No fracture or dislocation. Plantar calcaneal enthesophyte. No gross osteochondral injuries of talar dome. 2. Tendinosis involving posterior tibialis tendon at the level of distal talus and talonavicular joint. 3. Mild tendinosis involving peroneus tendons at the level of mid to distal calcaneus and calcaneocuboid joint. 4. Low-grade medial ankle ligament sprain. Low-grade sprain involving anterior and posterior talofibular ligament and calcaneofibular ligament. No full-thickness ankle ligament rupture. 5. Distal Achilles tendinosis. No Achilles tendon rupture. Dictated by: Lawrence Jiménez M.D. on 12/10/2023 at 15:54 Approved by: Lawrence Jiménez M.D. on 12/10/2023 at 15:58
== END ==
LOC: MRI 13:43
PROVIDERS: Family Provider Family Medicine; PCP Family Medicine; Referring Provider Orthopaedic Surgery Foot and Ankle Surgery; Visit Provider Orthopaedic Surgery Foot and Ankle Surgery
DX: S93.491A Sprain of other ligament of right ankle, initial encounter (principal); S93.411A Sprain of calcaneofibular ligament of right ankle, initial encounter; M19.071 Primary osteoarthritis, right ankle and foot; M25.371 Other instability, right ankle; M77.31 Calcaneal spur, right foot
CPT/HCPCS: 73721

== ENCOUNTER 2024-12-19 12:37 | Emergency (ER) | payer MEDICARE, SELFPAY ==
[2024-12-19 12:46] VITALS: BP 138/88; PULSE 56; RESP 18; TEMP 36.8; O2SAT 100; BMI 28.8
--- NOTE | 2024-12-19 13:50 | ED_ITS ---
HPI - Headache <Milady Patiño PA-C - Last Filed: 12/19/24 15:08> General Chief Complaint: Headache Stated Complaint: Migraine Time Seen by Provider: 12/19/24 13:50 Mode of arrival: Ambulatory History of Present Illness HPI Narrative: Ms. Antony is a very pleasant 63-year-old female with a past medical history of migraine headaches on Emgality and Ubrelvy, dystonia who presents to the emergency department for migraine headache x1 week. Patient states she has been doing well on her Emgality injections and Ubrelvy however about every 6 months she notices she will get breakthrough migraines. States that about 1 week ago she developed migraine that she describes as primarily left-sided but is now pressure across her whole forehead. States that headache is consistent with her normal headache. Reports that typically the only thing that helps is IV Toradol. She is taken her Ubrelvy without relief. She was having some nausea but this resolved with 8 mg of Zofran. Denies head trauma, fevers, chills, vomiting, new or concerning symptoms. She does follow up with the headache clinic at [facility] Home Medications Medication Instructions Recorded Confirmed amoxicillin 875 mg-potassium BID ##0 04/20/17 clavulanate 125 mg tablet (Augmentin) topiramate 25 mg capsule 25 mg PO BID ##0 04/20/17 sprinkle,extended release 24 hr valacyclovir 500 mg tablet 1,000 mg PO QDAY ##0 04/20/17 Previous Rx's Medication Instructions Recorded ketorolac 10 mg tablet 10 mg PO Q6H PRN pain #14 tabs 02/21/21 ondansetron 4 mg disintegrating 4 mg PO TID-QID PRN nausea and 02/21/21 tablet vomiting #10 tabs ketorolac 10 mg tablet 10 mg PO Q6H PRN pain #16 tabs 12/19/24 Allergies Allergy/AdvReac Type Severity Reaction Status Date / Time haloperidol [HALOPERIDOL] Allergy Unknown POSSIBLE Verified 12/19/24 12:45 CAUSE OF DYSTONIA metoclopramide Allergy Unknown POSSIBLE Verified 12/19/24 12:45 [METOCLOPRAMIDE] CAUSE OF DYSTONIA sumatriptan Allergy Verified 12/19/24 12:45 Opioids - Morphine Analogues AdvReac Mild Nausea Verified 12/19/24 12:45 [OPIOIDS - MORPHINE ANALOGUES] Review of Systems <Milady Patiño PA-C - Last Filed: 12/19/24 15:08> Review of Systems ROS Unobtainable: All systems reviewed & are unremarkable except as noted in HPI and below Patient History <Milady Patiño PA-C - Last Filed: 12/19/24 15:08> Social History Smoking Status: Never smoker Smoking Status: Never smoker Exam <Milady Patiño PA-C - Last Filed: 12/19/24 15:08> Narrative Exam Narrative: GENERAL: 63 year old patient appears younger than stated age. Well-developed patient, in no acute distress. HEAD: Atraumatic. Normocephalic. EYES: PERRL. Extraocular motions intact. No scleral icterus. No injection or drainage. ENT: Nose without bleeding, purulent drainage. NECK: Trachea midline. Cervical ROM intact. CARDIOVASCULAR: Regular rate and rhythm. RESPIRATORY: ?Nonlabored respirations. ?Speaking in clear, full sentences. ?Clear to auscultation. Breath sounds equal bilaterally. No wheezes, rales, or rhonchi. ? EXTREMITIES: No edema or joint tenderness. NEURO: AOx3. ?Clear speech. ?Moves all 4 extremities appropriately. No facial asymmetry. Sensation intact to light touch throughout. Bilateral upper and lower extremity strength intact. SKIN: No rash or erythema of visible areas Initial Vital Signs Initial Vital Signs: Vital Signs Temperature 98.2 F 12/19/24 12:46 Pulse Rate 56 L 12/19/24 12:46 Respiratory Rate 18 12/19/24 12:46 Blood Pressure 138/88 12/19/24 12:46 Pulse Oximetry 100 12/19/24 12:46 Oxygen Delivery Method Room Air 12/19/24 12:46 <Roseanna Chong DO - Last Filed: 12/22/24 07:55> Initial Vital Signs Initial Vital Signs: Vital Signs Temperature 98.2 F 12/19/24 12:46 Pulse Rate 56 L 12/19/24 12:46 Respiratory Rate 18 12/19/24 12:46 Blood Pressure 138/88 12/19/24 12:46 Pulse Oximetry 100 12/19/24 12:46 Oxygen Delivery Method Room Air 12/19/24 12:46 Course <Milady Patiño PA-C - Last Filed: 12/19/24 15:08> Orders Ordered: Discontinued Medications Acetaminophen (Acetaminophen 325 Mg Tablet) 975 mg PO NOW ONE Stop: 12/19/24 14:12 Last Admin: 12/19/24 14:30 Dose: 975 mg Documented By: YANETH Dexamethasone (Dexamethasone 10 Mg/Ml Vial) 10 mg IV NOW ONE Stop: 12/19/24 14:10 Last Admin: 12/19/24 14:30 Dose: 10 mg Documented By: YANETH Sodium Chloride (Normal Saline 0.9%) 1,000 mls @ 500 mls/hr IV BOLUS ONE Stop: 12/19/24 16:08 Last Infusion: 12/19/24 15:18 Dose: Infused Documented By: Admin: 12/19/24 14:31 Dose: 500 mls/hr Documented By: YANETH Ketorolac Tromethamine (Ketorolac 30 Mg/Ml Vial) 15 mg IV NOW ONE Stop: 12/19/24 14:10 Last Admin: 12/19/24 14:29 Dose: 15 mg Documented By: YANETH Vital Signs Vital signs: Vital Signs - 8 hr 12/19/24 12:46 Temperature 98.2 F Pulse Rate 56 L Respiratory Rate 18 Blood Pressure 138/88 Pulse Oximetry 100 Oxygen Delivery Method Room Air <Roseanna Chong DO - Last Filed: 12/22/24 07:55> Orders Ordered: Discontinued Medications Acetaminophen (Acetaminophen 325 Mg Tablet) 975 mg PO NOW ONE Stop: 12/19/24 14:12 Last Admin: 12/19/24 14:30 Dose: 975 mg Documented By: YANETH Dexamethasone (Dexamethasone 10 Mg/Ml Vial) 10 mg IV NOW ONE Stop: 12/19/24 14:10 Last Admin: 12/19/24 14:30 Dose: 10 mg Documented By: YANETH Sodium Chloride (Normal Saline 0.9%) 1,000 mls @ 500 mls/hr IV BOLUS ONE Stop: 12/19/24 16:08 Last Infusion: 12/19/24 15:18 Dose: Infused Documented By: Admin: 12/19/24 14:31 Dose: 500 mls/hr Documented By: YANETH Ketorolac Tromethamine (Ketorolac 30 Mg/Ml Vial) 15 mg IV NOW ONE Stop: 12/19/24 14:10 Last Admin: 12/19/24 14:29 Dose: 15 mg Documented By: YANETH Vital Signs Vital signs: Vital Signs - 8 hr 12/19/24 12:46 Temperature 98.2 F Pulse Rate 56 L Respiratory Rate 18 Blood Pressure 138/88 Pulse Oximetry 100 Oxygen Delivery Method Room Air MDM - Headache <Milady Haddad EMILY Patiño - Last Filed: 12/19/24 15:08> Medical Records Attestation: I reviewed the patient's medical records. [facility] Narrative Medical decision making narrative: 63-year-old female with a past medical history of migraine headaches on Emgality and Ubrelvy, dystonia who presents to the emergency department for migraine headache x1 week. Differential diagnosis includes but is not limited to tension headache, migraine headache, breakthrough headache, etc. On exam the patient is in no acute distress, nontoxic appearing, vital signs appropriate, no focal neurologic deficits. She describing atypical migraine headache that is lasting longer than usual without relief from Ubrelvy. When this happens in the past she has had relief from Toradol. No change in headache or red flags concerning for the need of emergent imaging. Patient states she also had imaging last week with her normal doctor. We will treat with IV Toradol, fluids, oral acetaminophen, IV Decadron to prevent rebound headache. Patient is happy with this plan. Patient had total resolution of her headache in the emergency department. After shared decision-making, I did send oral ketorolac to her pharmacy to use if needed for maximum of 5 days. Discussed following up with her headache team for further evaluation. Discussed signs and symptoms to return to the ED for. Patient verbalized understanding of all information is agreeable to the plan. She is stable for discharge home. Discharge Plan Departure Patient Disposition: Home Clinical Impression: Acute nonintractable headache Qualifiers: Headache type: unspecified Qualified Code(s): R51.9 - Headache, unspecified Instructions: DI for Migraine, DI for Hormonal and Tension Headaches Activity Restrictions/Additional Instructions: Dear Ms. Antony, Thank you for coming to the emergency department today. Today you were treated with intravenous medications for a migraine. You received IV ketorolac, I have prescribed you oral ketorolac if needed for breakthrough headaches in the next subsequent days. Please follow up with your headache team for further management. Return to the emergency room if you develop any new worsening or concerning symptoms. Please follow up with your primary care doctor within the next 2-3 days for ER follow-up. (If you do not have a PCP you can call [phone]. ?to schedule an appointment with an [facility] Primary Care Provider) IF YOU DEVELOP ANY NEW OR WORSENING SYMPTOMS, RETURN TO THE ER! Please read the attached instructions, they highlight more specific treatments and interventions for you at home. Thank you for letting me participate in your care, Milady Patiño PA-C Prescriptions: New ketorolac 10 mg tablet 10 mg PO Q6H PRN (Reason: pain) Qty: 16 0RF Rx Instructions: maximum total duration of 5 days from all oral, intranasal, or parenteral formulations No Action topiramate 25 MG capsule,sprinkle,ER 24hr 25 mg PO BID Qty: 0 valacyclovir 500 MG tablet 1,000 mg PO QDAY Qty: 0 amoxicillin-pot clavulanate [Augmentin] 875 MG/125 MG tablet BID Qty: 0 ondansetron 4 mg tablet,disintegrating 4 mg PO TID-QID PRN (Reason: nausea and vomiting) Qty: 10 0RF ketorolac 10 mg tablet 10 mg PO Q6H PRN (Reason: pain) Qty: 14 0RF Referrals: Julianne Eden MD [Primary Care Provider] - Stand Alone Forms: Patient Portal/API/Survey ED Sign-out <Roseanna Chong DO - Last Filed: 12/22/24 07:55> Cosign ED Attending Deanne Attestation: I was available for consultation.
[2024-12-19] MEDS: KETOROLAC 30 MG/ML VIAL 15 MG IV (14:29)
[2024-12-19] MEDS: ACETAMINOPHEN 325 MG TABLET 975 MG PO (14:30)
[2024-12-19] MEDS: DEXAMETHASONE 10 MG/ML VIAL IV (14:30)
[2024-12-19] MEDS: SODIUM CHLORIDE 0.9% 1,000 ML 500 ML IV (14:31)
[2024-12-19 15:18] VITALS: BP 114/64; PULSE 56; RESP 16; O2SAT 99
== END 2024-12-19 15:22 | disposition home or self-care (01) ==
PROVIDERS: Emergency Provider Physician Assistant; Family Provider Family Medicine; PCP Family Medicine
DX: G43.909 Migraine, unspecified, not intractable, without status migrainosus (principal)
CPT/HCPCS: 96361; 96374; 96375; 99284; J1100; J1885